=== PATIENT | male | born 1995 | race Caucasian/White ===

== ENCOUNTER 2024-05-08 13:11 | Emergency (ER) | payer OTHER | END 2024-05-08 15:40 | disposition home or self-care (01) | LOC: JD.ED 13:11 | DX: S80.11XA Contusion of right lower leg, initial encounter (principal); X58.XXXA Exposure to other specified factors, initial encounter; Y93.39 Activity, other involving climbing, rappelling and jumping off; Y92.39 Other specified sports and athletic area as the place of occurrence of the external cause | CPT/HCPCS: 73590-26-RT; 73590-RT; 99282; 99283 ==